=== PATIENT | female | born 1935 | race Caucasian/White ===

== ENCOUNTER 2016-07-04 06:16 | Inpatient (IN) | payer OTHER ==
[2016-06-27 10:39] VITALS: BMI 30.9
[2016-07-04] MEDS ORDERED: BUPIVACAINE HCL/PF 2.5 MG/ML - 30 ML VIAL IJ ONE (07:30)
[2016-07-04] MEDS ORDERED: GUM MASTIC/STORAX/MSAL/ALCOHOL 1 DRP DROPSBTL MC ONE (07:31)
[2016-07-04] MEDS ORDERED: LIDOCAINE 1%-EPI 1:100,000 30 ML MDV IJ ONE (07:31)
[2016-07-04] MEDS ORDERED: THROMBIN (BOVINE) 5,000 UNIT VIAL TP ONE (07:32)
[2016-07-04] MEDS ORDERED: MIDAZOLAM HCL 2 MG/2 ML SINGLE DOSE VIAL ONE ×3 (07:42→10:27)
[2016-07-04] MEDS ORDERED: BUPIVACAINE HCL/PF 0.5% (5MG/ML) 10 ML VIAL ONE ×2 (07:44→11:06)
[2016-07-04] MEDS ORDERED: DEXTROSE 50%-WATER 50 ML VIAL IVPUSH ONE (07:44)
--- NOTE | 2016-07-04 07:45 | HP ---
History & Physical Update - History History: No Change - Physical Physical: No Change - Assessment Assessment: No Change - Plan Plan: No Change (BGM 52 this am, Amp of D50W ordered)
[2016-07-04] MEDS ORDERED: LIDOCAINE HCL 1%, 10 MG/ML (20ML VIAL) ONE (08:56)
[2016-07-04] MEDS ORDERED: ceFAZolin SODIUM 1 GM VIAL ONE ×2 (09:23)
[2016-07-04] MEDS ORDERED: GLYCOPYRROLATE 0.2 MG/1 ML VIAL ONE (09:36)
[2016-07-04] MEDS ORDERED: ePHEDrine SULFATE 50 MG/1 ML AMPULE ONE (09:54)
[2016-07-04] MEDS ORDERED: LIDOCAINE HCL 1%, 10 MG/ML (20ML VIAL) IJ ONE (10:14)
[2016-07-04] MEDS ORDERED: PROPOFOL 20 ML ONE (11:28)
[2016-07-04] MEDS ORDERED: BUPIVACAINE HCL/PF 0.25% (2.5MG/ML) 10 ML VIAL IJ ONE (11:37)
[2016-07-04] MEDS ORDERED: ONDANSETRON 4 MG/2 ML VIAL IVPUSH PRN (12:14)
[2016-07-04] MEDS ORDERED: LACTATED RINGERS SOLUTION 1,000 ML IV SCH (12:15)
[2016-07-04] MEDS ORDERED: morphine CARPU-JECT 4 MG/1 ML DISP.SYRIN IVPUSH PRN (12:30)
[2016-07-04] MEDS ORDERED: ACETAMINOPHEN INJECTION 100 ML IVPB ONE (12:30)
[2016-07-04] MEDS ORDERED: ONDANSETRON 4 MG/2 ML VIAL IVPB PRN (12:30)
[2016-07-04] MEDS ORDERED: ACETAMINOPHEN 1000 MG/100 ML VIAL (NON FORMULARY) IVPB ONE ×2 (12:35→12:36)
[2016-07-04] MEDS ORDERED: ALBUTEROL SO4 6.7 GM HFA INHALER IH PRN ×2 (12:39→15:43)
[2016-07-04] MEDS ORDERED: SODIUM CHLORIDE 1,000 ML IV SCH (12:45)
[2016-07-04] MEDS ORDERED: ONDANSETRON 4 MG/2 ML VIAL IVPUSH ONE (12:45)
--- NOTE | 2016-07-04 12:58 | OP ---
<Violet Mcgowan - Last Filed: 07/04/16 12:53> Operative Note - Note: Operative Date: 07/04/16 Pre-Operative Diagnosis: lumbar spondylolithesis C4-C5 Operation: posterior lumbar fusion, decompression, instrumentation, transforaminal lumbar interbody fusion of C4-C5 with allograft and neuromonitoring Post-Operative Diagnosis: Same as Pre-op Surgeon: Jaycob Arias Hand Laster: Violet Mcgowan Anesthesiologist/CARE ASSOCIATE: Hernan Francois Anesthesia: Spinal Estimated Blood Loss (mls): 30 Drains & Tubes with Location: hemovac, Subcutaneous tissue lumbar region Fluid Volume Replaced (mls): 1,000 Operative Report Dictated: Yes <Jaycob Arias - Last Filed: 07/08/16 11:31> Operative Note - Note: Pre-Operative Diagnosis: L4-5 Spondylolisthesis
--- NOTE | 2016-07-04 12:58 | SURG ---
Surgery Securities Consultant Note Securities Consultant: Violet Mcgowan PA-C Date of Service: 07/04/16 Diagnosis: lumbar spondylolisthesis of C4-C5 Procedure: posterior lumbar fusion, decompression, instrumentation, transforaminal lumbar interbody fusion of C4-C5 with allograft and neuromonitoring I was present for the entirety of the operative procedure. For further detail, please refer to operative report. <Violet Mcgowan - Last Filed: 07/04/16 12:58> Diagnosis: L4-5 Spondylolisthesis I was present for the entirety of the operative procedure. For further detail, please refer to operative report. <Jaycob Arias - Last Filed: 07/08/16 11:31> Visit type - Case Type Case Type: Scheduled Admission - Emergency Emergency Visit: No - New patient This patient is new to me today: Yes Date on this admission: 07/04/16 - Critical Care Critical Care patient: No <Violet Mcgowan - Last Filed: 07/04/16 12:58>
[2016-07-04] MEDS: diazePAM 2 MG TABLET PO SCH ×2 (14:30→21:18)
[2016-07-04] MEDS: oxyCODONE HCL 5 MG TABLET PO PRN (14:30)
[2016-07-04] MEDS: REPAGLINIDE 1 MG TABLET PO SCH (17:40)
[2016-07-04] MEDS: CEFAZOLIN 1 GM/D5W 50 ML IVPB SCH (18:00)
[2016-07-04] MEDS ORDERED: PT OWN MED DRAWER 7, Y5N ONE (18:21)
[2016-07-04] MEDS ORDERED: ACETAMINOPHEN 325 MG TABLET (FP) PO PRN (21:00)
[2016-07-04] MEDS: LOSARTAN POTASSIUM 50 MG TABLET (FP) PO SCH (21:16)
[2016-07-04] MEDS: traMADol HCL 50 MG TABLET PO PRN (21:18)
[2016-07-04] MEDS: METOPROLOL TARTRATE 50 MG TABLET (FP) PO SCH (21:18)
[2016-07-05] MEDS: CEFAZOLIN 1 GM/D5W 50 ML IVPB SCH (01:41)
[2016-07-05] MEDS: oxyCODONE HCL 5 MG TABLET PO PRN (01:42)
[2016-07-05] MEDS: diazePAM 2 MG TABLET PO SCH (05:32)
[2016-07-05] MEDS: traMADol HCL 50 MG TABLET PO PRN (05:33)
[2016-07-05] MEDS: LEVOTHYROXINE NA 100 MCG TABLET (FP) PO SCH (06:27)
[2016-07-05] MEDS: REPAGLINIDE 1 MG TABLET PO SCH ×3 (07:29→16:55)
[2016-07-05] MEDS ORDERED: oxyCODONE HCL 5 MG TABLET PO PRN (08:01)
[2016-07-05 09:00] LABS: MCHC 33.4 g/dl (32.0-36.0); MEAN CELL VOLUME 92.7 fl (80-96); MEAN PLT VOLUME 10.3 fl (7.5-11.1); PLATELET COUNT 117 K/MM3 (134-434); RDW 12.7 % (11.6-15.6)
[2016-07-05 09:14] LABS: ANION GAP 9 (8-16); CALCIUM 8.3 mg/dl (8.4-10.2); CO2 22 mmol/L (22-28); CREATININE 2.2 mg/dl (0.6-1.3); GLUCOSE,RANDOM 155 mg/dl (74-106)
--- NOTE | 2016-07-05 09:15 | DS ---
Physical Exam: SUBJECTIVE: Patient seen and examined today. OBJECTIVE: She states that her pain level is at 1 this am. Over night her pain was higher. She complains of pain in her right thigh to knee. No CP, SOB, oob an ambulated with assistance. Vital Signs Temperature 98.4 F 07/05/16 06:00 Pulse Rate 57 L 07/05/16 06:00 Respiratory Rate 18 07/05/16 06:00 Blood Pressure 132/39 07/05/16 06:00 O2 Sat by Pulse Oximetry (%) 94 L 07/05/16 06:00 HIEU-240ml PHYSICAL EXAM:POD#1 GENERAL: The patient is awake, alert, and fully oriented, in no acute distress. LUNGS: Breath sounds equal, clear to auscultation bilaterally, no wheezes, no crackles, no accessory muscle use. HEART: Regular rate and rhythm, S1, S2 without murmur, rub or gallop. ABDOMEN: Soft, nontender, nondistended. BACK: Hieu removed. No ecchymosis or swelling noted. Inc c/d/i with steri-strips EXTREMITIES: 2+ pulses, warm, well-perfused, no edema. SCDs in place NEUROLOGICAL: Normal speech, steady gait. dorsi/planatar felxion 5/5 PSYCH: Normal mood, normal affect. SKIN: Warm, dry, normal turgor, no rashes or lesions noted. LABS CBC, BMP 07/05/16 07:33 07/05/16 07:33 POC Glucometer 152 UNITS (()) 07/05/16 06:30 HOSPITAL COURSE: Date of Admission:07/04/16 Date of Discharge: 07/06/16 The patient was admitted to the Med-Surg Unit after an elective repair of their lumbar spondylolisthesis. Now, s/p L4-L5 lumbar fusion. The day of surgery, the patient ambulated the hallways with assistance. Narcotic and non-narcotic pain management control was achieved with an oral and IV approach. POD #1, the surgical drain was removed fully intact and without incident. An xray was obtained and confirmed hardware placement at L4-L5, no fractures or dislocations. Patricia-operative IV ABX were administered. DVT prophylaxis was achieved with SCDs and early ambulation. The patient ambulated with Physical Therapy and sent home with home PT and a walker. Narcotic scripts and or muscle relaxants were checked with [employer] DESIGN SPECIALIST prior to escibe. The discharge instructions and an oral pain management plan were reviewed with the patient. All questions answered. Above plan discussed with Dr. Arias and agreed Addendum: The patient stayed another day for pain issues. The day of discharge, her vital signs remained stable. She had complaints of pain to her right thigh, similar to prior to surgery. She was oob and ambulating with assistance. Discharge PT was in place for day of discharge. PE: CV:RRR Lungs: CTA b/l Back:dressing c/d/i and without blood. LE: dorsi/plantar flexion 5/5 b/l Minutes to complete discharge: 20 <MetzenViolet - Last Filed: 07/08/16 07:22> Physical Exam: SUBJECTIVE: Patient seen and examined OBJECTIVE: Vital Signs Temperature 99.2 F 07/06/16 06:00 Pulse Rate 78 07/06/16 06:00 Respiratory Rate 20 07/06/16 08:28 Blood Pressure 142/42 07/06/16 06:00 O2 Sat by Pulse Oximetry (%) 99 07/06/16 08:28 PHYSICAL EXAM GENERAL: The patient is awake, alert, and fully oriented, in no acute distress. HEAD: Normal with no signs of trauma. EYES: PERRL, extraocular movements intact, sclera anicteric, conjunctiva clear. ENT: Ears normal, nares patent, oropharynx clear without exudates, moist mucous membranes. NECK: Trachea midline, full range of motion, supple. LUNGS: Breath sounds equal, clear to auscultation bilaterally, no wheezes, no crackles, no accessory muscle use. HEART: Regular rate and rhythm, S1, S2 without murmur, rub or gallop. ABDOMEN: Soft, nontender, nondistended, normoactive bowel sounds, no guarding, no rebound, no hepatosplenomegaly, no masses. EXTREMITIES: 2+ pulses, warm, well-perfused, no edema. NEUROLOGICAL: Cranial nerves II through XII grossly intact. Normal speech, gait not observed. PSYCH: Normal mood, normal affect. SKIN: Warm, dry, normal turgor, no rashes or lesions noted. LABS CBC,CMP WBC 8.0 K/mm3 (4.0-10.8) 07/05/16 07:33 RBC 2.76 M/mm3 (3.60-5.2) L 07/05/16 07:33 Hgb 8.6 GM/dl (10.7-15.3) L 07/05/16 07:33 Hct 25.6 % (32.4-45.2) L 07/05/16 07:33 MCV 92.7 fl (80-96) 07/05/16 07:33 MCHC 33.4 g/dl (32.0-36.0) 07/05/16 07:33 RDW 12.7 % (11.6-15.6) 07/05/16 07:33 Plt Count 117 K/MM3 (134-434) L 07/05/16 07:33 MPV 10.3 fl (7.5-11.1) 07/05/16 07:33 Sodium 134 mmol/L (136-145) L 07/05/16 07:33 Potassium 5.0 mmol/L (3.5-5.1) 07/05/16 07:33 Chloride 103 mmol/L (98-107) 07/05/16 07:33 Carbon Dioxide 22 mmol/L (22-28) 07/05/16 07:33 Anion Gap 9 (8-16) 07/05/16 07:33 BUN 56 mg/dl (7-18) H 07/05/16 07:33 Creatinine 2.2 mg/dl (0.6-1.3) H 07/05/16 07:33 POC Glucometer 151 UNITS (()) 07/06/16 06:56 Random Glucose 155 mg/dl (74-106) H 07/05/16 07:33 Calcium 8.3 mg/dl (8.4-10.2) L 07/05/16 07:33 HOSPITAL COURSE: Date of Admission:07/04/16 Date of Discharge: 07/08/16 The patient was admitted to the Med-Surg Unit after an elective repair of their L4-5 Spondylolisthesis, s/p L4-5 TLIF. The day of surgery, the patient ambulated the hallways with assistance. Narcotic and non-narcotic pain management control was achieved with an oral and IV approach. POD #1, the surgical drain was removed fully intact and without incident. An xray was obtained and confirmed hardware placement at L4-5, no fractures or dislocations. Patricia-operative IV ABX were administered. DVT prophylaxis was achieved with SCDs and early ambulation. The patient ambulated with Physical Therapy and no services were recommended upon discharge. Narcotic scripts and or muscle relaxants were checked with [place] DESIGN SPECIALIST prior to escibe. The discharge instructions and an oral pain management plan were reviewed with the patient. All questions answered. Above plan discussed with Dr. Arias and agreed. <Jaycob Arias - Last Filed: 07/08/16 11:33> Visit type - Case Type Case Type: Scheduled Admission - Emergency Emergency Visit: No - New patient This patient is new to me today: Yes Date on this admission: 07/08/16 - Critical Care Critical Care patient: No <Violet Mcgowan - Last Filed: 07/08/16 07:22>
[2016-07-05] MEDS ORDERED: diazePAM 2 MG TABLET PO PRN (09:36)
[2016-07-05] MEDS: CYCLOBENZAPRINE HCL 10 MG TABLET (FP) PO SCH ×2 (09:37→21:33)
[2016-07-05] MEDS: amLODIPine BESYLATE 10 MG TABLET (FP) PO SCH (09:38)
--- NOTE | 2016-07-05 09:44 | PN ---
Progress Note (short form) - Note Progress Note: ANESTHESIOLOGY POST-OP CHECK 80F S/P L4-L5 lumbar fusion under spinal anesthesia, POD #1. Pain 8/10 at rest and reports there was relief with diazepam previously. Tolerating PO, ambulating , voiding, denies N/V, numbness. Vital Signs Temperature 98.4 F 07/05/16 06:00 Pulse Rate 57 L 07/05/16 06:00 Respiratory Rate 18 07/05/16 06:00 Blood Pressure 132/39 07/05/16 06:00 O2 Sat by Pulse Oximetry (%) 94 L 07/05/16 06:00 Active Medications Acetaminophen (Tylenol -) 650 mg PO Q6H PRN Last Admin: 07/05/16 01:42 Dose: 650 mg Albuterol Sulfate (Ventolin Hfa Inhaler -) 2 puff IH Q6H PRN PRN Reason: WHEEZING Amlodipine Besylate (Norvasc -) 10 mg PO DAILY [facility] Cyclobenzaprine HCl (Flexeril -) 10 mg PO BID [facility] Diazepam (Valium -) 2 mg PO Q6H PRN PRN Reason: PAIN Sodium Chloride (Normal Saline -) 1,000 mls @ 50 mls/hr IV ASDIR [facility], [facility]1983 Stop: 07/05/16 12:39 Last Admin: 07/05/16 07:08 Dose: Not Given Levothyroxine Sodium (Synthroid -) 100 mcg PO DAILY@0700 [facility] Last Admin: 07/05/16 06:27 Dose: 100 mcg Losartan Potassium (Cozaar -) 100 mg PO [facility] Last Admin: 07/04/16 21:16 Dose: 100 mg Metoprolol Tartrate (Lopressor -) 50 mg PO [facility] Last Admin: 07/04/16 21:18 Dose: Not Given Morphine Sulfate (Morphine Injection -) 4 mg IVPUSH Q6H PRN PRN Reason: PAIN LEVEL 6-10 Last Admin: 07/04/16 20:34 Dose: 4 mg Ondansetron HCl (Zofran Injection) 4 mg IVPB Q6H PRN PRN Reason: NAUSEA AND/OR VOMITING Oxycodone HCl (Roxicodone -) 10 mg PO Q4H PRN PRN Reason: PAIN LEVEL 6-10 Last Admin: 07/05/16 08:16 Dose: 10 mg Oxycodone HCl (Roxicodone -) 5 mg PO Q4H PRN PRN Reason: PAIN LEVEL 1-5 Repaglinide (Prandin -) 3 mg PO TIDCM [facility] Last Admin: 07/05/16 07:29 Dose: 3 mg Gen: awake, alert No apparent anesthesia complications. Pain control inadequate. Will add Diazepam PRN discussed with nurse, monitor for sedation. Continue management as per primary team.
[2016-07-05] MEDS ORDERED: SODIUM CHLORIDE 500 ML IV STA (11:46)
--- NOTE | 2016-07-05 12:03 | OP ---
DATE OF OPERATION: 07/04/2016 PREOPERATIVE DIAGNOSES: 1. L4-L5 stenosis. 2. L4-L5 spondylolisthesis. POSTOPERATIVE DIAGNOSES: 1. L4-L5 stenosis. 2. L4-L5 spondylolisthesis. PROCEDURE PERFORMED: 1. Transforaminal lumbar interbody fusion L4-L5. 2. Placement of instrumentation. 3. Placement of prosthetic cage. 4. Hemilaminectomy. SURGEON: Jaycob Arias MD BELLING MACHINE OPERATOR: SAM Alejandra ESTIMATED BLOOD LOSS: 50 mL. IV FLUIDS: Per Anesthesia. ANESTHESIA: Spinal. COMPLICATIONS: None. DISPOSITION: The patient was brought to the PACU in stable condition. INDICATIONS FOR SURGERY: The patient is a 80-year-old female who has been suffering from pain from her neck down her legs. X-ray and MRI are completed, which noted that she has spondylolysis at L4-L5 contributing to stenosis at that level. She had gone through an exhaustive course of treatment for this, which included medications, physical therapy as well as injections. Unfortunately, her pain continued to persist despite all this. At this point, risks, benefits, and alternatives were discussed, and the patient consented to surgery. DESCRIPTION OF PROCEDURE: The patient was brought to the operating room by the Anesthesia staff. After appropriate patient identification was performed, spinal anesthesia was given. She was placed prone on the OR bed with all areas and bony prominences well padded at this time. The patient was able to position herself to avoid all bony prominences. The C-arm was brought in, and the L4 and L5 pedicle was marked off. Then 10 mL of lidocaine with epinephrine was injected into her back at this time. Her back was prepped and draped in a sterile manner. At this point, a time-out was completed. Incision were made bilaterally over the L4-L5 pedicles. Dissection was carried down to the fascia. The fascia was split open at this time. Under C-arm guidance, trocars were advanced into both the L4 and the L5 pedicles so the trocars and wires were inserted. Trocars were removed. Over the wires, tap was performed and screws were inserted. On the right hand side, retractor blades were set up to expose the L4-L5 facet joint. The disk was entered. Using a series of pituitaries, Kerrisons, and curettes, diskectomy was completed. The endplates were decorticated at this time. Bone graft was laid down. A size 8 cage-filled bone graft was placed in. Tulip heads were placed on the screws. A ronda was measured and placed on. Caps were placed on. Final tightening was performed. On the left hand side, a ronda was measured and placed in, caps were placed on, and final tightening was performed. AP and lateral x-ray confirmed the instrumentation to be in good position. All bleeding was well controlled at this time. The fascia was closed with a No. 1 Vicryl suture. A drain was placed. The subcutaneous tissues were closed with 2 -0 Vicryl suture. The skin was closed with 3-0 Monocryl suture. Dermabond was applied. Steri-Strips were applied. A sterile dressing was applied. The patient was placed supine on the OR bed and brought to the PACU in stable condition. Neuro monitoring was stable throughout the operative course. Inocente DARLING/[id number] MTDD
[2016-07-05] MEDS ORDERED: DOCUSATE SODIUM 100 MG CAPSULE (FP) PO ONE (12:10)
[2016-07-05] MEDS: FERROUS SO4 325 MG TABLET (FP) PO SCH ×2 (12:24→21:33)
[2016-07-05] MEDS: LOSARTAN POTASSIUM 50 MG TABLET (FP) PO SCH (21:32)
[2016-07-05] MEDS: METOPROLOL TARTRATE 50 MG TABLET (FP) PO SCH (21:32)
[2016-07-06] MEDS: oxyCODONE HCL 5 MG TABLET PO PRN ×2 (01:43→06:19)
[2016-07-06] MEDS: LEVOTHYROXINE NA 100 MCG TABLET (FP) PO SCH (06:18)
[2016-07-06 06:35] VITALS: BP 142/42; PULSE 78; TEMP 99.2
[2016-07-06] MEDS: REPAGLINIDE 1 MG TABLET PO SCH (08:00)
[2016-07-06] MEDS: FERROUS SO4 325 MG TABLET (FP) PO SCH (09:31)
[2016-07-06] MEDS: CYCLOBENZAPRINE HCL 10 MG TABLET (FP) PO SCH (09:31)
[2016-07-06] MEDS: amLODIPine BESYLATE 10 MG TABLET (FP) PO SCH (09:31)
== END 2016-07-06 10:50 | disposition home health service (06) | DRG 460 ==
LOC: FM/S 06:16
PROVIDERS: ADMIT Orthopaedic Surgery Orthopaedic Surgery of the Spine; ATTEND Orthopaedic Surgery Orthopaedic Surgery of the Spine
PROC: 0SG00K1 Fusion of Lumbar Vertebral Joint with Nonautologous Tissue Substitute, Posterior Approach, Posterior Column, Open Approach (ICD-10-PCS; 2016-07-04)
PROC: 4A11X4G Monitoring of Peripheral Nervous Electrical Activity, Intraoperative, External Approach (ICD-10-PCS; 2016-07-04)
PROC: 0SG00A1 (ICD-10-PCS; principal; 2016-07-04 09:41)
DX: M43.16 Spondylolisthesis, lumbar region (principal); M48.06 Spinal stenosis, lumbar region; I25.10 Atherosclerotic heart disease of native coronary artery without angina pectoris; Z95.1 Presence of aortocoronary bypass graft; I10 Essential (primary) hypertension; E78.5 Hyperlipidemia, unspecified; E11.9 Type 2 diabetes mellitus without complications; Z79.84 Long term (current) use of oral hypoglycemic drugs; I25.2 Old myocardial infarction
CPT/HCPCS: 36415; 72100-TC; 76001-TC; 80048; 85027; 94010; 94760; 97116-GP; 97162-PG